=== PATIENT | female | born 1970 | race African-American/Black ===

== ENCOUNTER → 2016-11-20 | Outpatient (CLI) | payer MEDICARE ==
[~2016-11-20] MED LIST: HYDROCODONE-APA1 T33 PO; LEXAPRO PO
--- NOTE | ~2016-11-20 | MY29 ---
[facility] A Service of [facility] & [facility] RADIOLOGY TEXT RESULTS PATIENT: ARIADNA BRADY LOCATION: [facility] : 66 UNIT #: [id number] AGE: [address]: DAXA MORRISON MD SEX: F ORDER DR: [id number] [facility] [address] [facility] [place], [place] [address] [id number] O MR#: [id number] #: [id number] NAME: ARIADNA BRADY : 1970 SEX: F STUDY DATE/TIME: 11/20/2016 10:07 UNIT: [facility] ROOM: STUDY DESCRIPTION: MY [facility] SCREENING W/ CAD BILAT Attending Physician: Daxa Morrison M.D. Ordering Physician: Daxa Morrison M.D. Primary Care Physician: Daxa Morrison M.D. MEDICAL IMAGING REPORT This report is preliminary unless electronic signature is present EXAM Digital screening mammogram, 11/20/2016; [facility]. HISTORY 46-year-old woman, no risk elevation. Annual screen. COMPARISON 04/27/2011, 10/21/2015. TECHNIQUE Digital imaging of each breast was completed utilizing screening protocol. Review includes FDA-approved CAD device. FINDINGS The breast parenchyma is predominantly fatty replaced bilaterally. Small intramammary lymph node left breast is stable. Two image-guided biopsy markers upper/outer quadrant anterior third right breast are stable. There is no suspicious mass. I see no interval occurring microcalcifications and no suspicious architectural deformity. IMPRESSION Negative mammogram. Annual screening recommended. BIRADS 1. Patients over the age of 40 are entered into a reminder system with target due date for the next mammogram. A result letter will also be sent to the patient. BIRADS: 1 Negative. Dictated by... Jose Cruz Milian M.D. [facility] A Service of [facility] & [facility] RADIOLOGY TEXT RESULTS PATIENT: ARIADNA BRADY LOCATION: [facility] : 66 UNIT #: [id number] AGE: [address]: DAXA MORRISON MD SEX: F ORDER DR: THIS IS AN ELECTRONICALLY VERIFIED REPORT Jose Cruz Milian M.D. at 11/21/2016 8:24 AM VIRAJ/sean TD: 11/20/2016 17:21 JOB #: [id number] MEDICAL IMAGING REPORT Page 1 of 1 COPY
== END | disposition home or self-care (01) ==
LOC: CWCC 11-19 10:00
DX: Z12.31 Encounter for screening mammogram for malignant neoplasm of breast (principal)
CPT/HCPCS: G0202